=== PATIENT | male | born 1955 | race African-American/Black ===

== ENCOUNTER 2017-04-25 02:41 | Inpatient (IN) | payer OTHER ==
[~2017-04-25] VITALS: Ht 180.3 cm; Wt 84.4 kg
[2017-04-25 02:45] VITALS: Ht 180.3 cm; Wt 84.4 kg
[2017-04-25 03:59] LABS: BASOPHIL % 0.3 % (0-2)
[2017-04-25 04:08] LABS: RED CELL DISTRIBUTION WIDTH 16.6 % (11.5-14.5)
[2017-04-25 04:13] LABS: CALCIUM 8.6 mg/dL (8.5-10.1); CARBON DIOXIDE 27.1 mmol/L (21-32); CREATININE SERUM 1.6 mg/dL (0.7-1.3); POTASSIUM SERUM 5.3 mmol/L (3.5-5.1)
[2017-04-25 04:18] LABS: BILIRUBIN TOTAL 3.66 mg/dL (0.20-1.00)
[2017-04-25 04:21] LABS: ALBUMIN 2.7 g/dL (3.4-5.0); TOTAL PROTEIN, SERUM 8.6 g/dL (6.4-8.2)
[2017-04-25 05:16] LABS: PLATELET COUNT 44 x10^3mcL (130-400)
[2017-04-25] MEDS ORDERED: APAP500 MG (06:39)
[2017-04-25] MEDS ORDERED: LACTULOSE10 GM/152 (06:40)
[2017-04-25] MEDS ORDERED: NITROGLYCERIN0.4 MG (06:40)
[2017-04-25] MEDS ORDERED: VIBRAMYCIN50 MG/5 ML (06:40)
[2017-04-25] MEDS ORDERED: TAMSULOSIN HYD0.4 M1 (06:41)
[2017-04-25] MEDS ORDERED: CARVEDILOL3.125 M1 (06:41)
[2017-04-25] MEDS ORDERED: LIPI20 (06:41)
[2017-04-25] MEDS ORDERED: IPRATROPIUM BRO1 POW (06:41)
[2017-04-25] MEDS ORDERED: FUROSEMIDE5 GM (06:41)
[2017-04-25] MEDS ORDERED: FERROUS SULFAT325 M2 (06:42)
[2017-04-25] MEDS ORDERED: ALDACTONE25 MG (06:42)
[2017-04-25] MEDS ORDERED: MOMETASONE FUR500 ML (06:42)
[2017-04-25] MEDS ORDERED: METOLAZONE5 M1 (06:42)
[2017-04-25] MEDS ORDERED: XOPENEX HF0.045 MG/1 (06:43)
[2017-04-25] MEDS ORDERED: ASPIRIN81 MG (06:43)
[2017-04-25] MEDS ORDERED: ZESTRIL20 MG (06:43)
[2017-04-25 07:00] VITALS: BP 93/64
[2017-04-25 08:22] VITALS: BP 93/64
[2017-04-25 09:27] LABS: CHOLESTEROL/HDL RATIO 1.4
[2017-04-25 09:49] VITALS: BP 93/57
[2017-04-25 11:10] LABS: microscopic required? NO
[2017-04-25 11:46] LABS: urine erythrocyte NEGATIVE (NEGATIVE)
[2017-04-25 11:48] LABS: AMPHETAMINE QUAL UR NONE DETECTED (NEG <=1000)
[2017-04-25 13:06] VITALS: BP 105/75
[2017-04-25 17:39] VITALS: BP 108/74
[2017-04-25 20:53] VITALS: BP 99/64
[2017-04-26 05:42] VITALS: BP 93/59
[2017-04-26 08:53] LABS: CALCIUM 8.5 mg/dL (8.5-10.1); CARBON DIOXIDE 27.2 mmol/L (21-32); CREATININE SERUM 1.6 mg/dL (0.7-1.3); POTASSIUM SERUM 4.3 mmol/L (3.5-5.1)
[2017-04-26 09:00] VITALS: BP 97/66
[2017-04-26 09:28] LABS: BASOPHIL % 0 % (0-2); RED CELL DISTRIBUTION WIDTH 16.3 % (11.5-14.5)
[2017-04-26 10:41] LABS: PLATELET COUNT 37 x10^3mcL (130-400)
[2017-04-26 12:24] VITALS: BP 94/68
[2017-04-26 16:33] VITALS: BP 99/77
[2017-04-26 22:17] VITALS: BP 119/78
[2017-04-27 06:31] VITALS: BP 122/60
[2017-04-27 07:12] LABS: BASOPHIL % 0 % (0-2)
[2017-04-27 07:48] LABS: CARBON DIOXIDE 29.4 mmol/L (21-32); CREATININE SERUM 1.6 mg/dL (0.7-1.3); POTASSIUM SERUM 3.3 mmol/L (3.5-5.1)
[2017-04-27 08:33] LABS: PLATELET COUNT 30 x10^3mcL (130-400)
[2017-04-27 10:54] VITALS: BP 104/62
[2017-04-27 14:11] VITALS: BP 101/56
[2017-04-27 15:27] VITALS: BP 101/56
[2017-04-27 18:43] VITALS: BP 102/73
== END 2017-04-27 19:47 | disposition other institution (70) | DRG 189 ==
LOC: ED 02:41 → DU 05:19
PROVIDERS: Emergency Medicine; Internal Medicine
PROC: 3E0234Z Introduction of Serum, Toxoid and Vaccine into Muscle, Percutaneous Approach (ICD-10-PCS; principal; 2017-04-25)
DX: J96.21 Acute and chronic respiratory failure with hypoxia (principal); J18.9 Pneumonia, unspecified organism; J44.1 Chronic obstructive pulmonary disease with (acute) exacerbation; J44.0 Chronic obstructive pulmonary disease with (acute) lower respiratory infection; J45.901 Unspecified asthma with (acute) exacerbation; I24.9 Acute ischemic heart disease, unspecified; Z23 Encounter for immunization; K74.60 Unspecified cirrhosis of liver; I25.10 Atherosclerotic heart disease of native coronary artery without angina pectoris; I25.5 Ischemic cardiomyopathy; Z95.0 Presence of cardiac pacemaker; D69.6 Thrombocytopenia, unspecified; J20.9 Acute bronchitis, unspecified; I50.9 Heart failure, unspecified
CPT/HCPCS: 83880; 90732; J1940; J1956; J2543; J2920; J2930; J7050; J7620; Q0092

== ENCOUNTER 2017-11-21 18:55 | Inpatient (IN) | payer OTHER ==
[~2017-11-21] VITALS: Ht 182.9 cm; Wt 81.6 kg
[~2017-11-21 18:55] MED LIST: ALDACTONE25 MG; APAP500 MG; ASPIRIN81 MG; CARVEDILOL3.125 M1; FERROUS SULFAT325 M2; FUROSEMIDE5 GM; IPRATROPIUM BRO1 POW; LACTULOSE10 GM/152; LIPI20; METOLAZONE5 M1; MOMETASONE FUR500 ML; NITROGLYCERIN0.4 MG; TAMSULOSIN HYD0.4 M1; VIBRAMYCIN50 MG/5 ML; XOPENEX HF0.045 MG/1; ZESTRIL20 MG
[2017-11-21 18:58] VITALS: Ht 182.9 cm; Wt 81.6 kg
[2017-11-21 19:43] LABS: FREE THYROXINE INDEX 2.2 ug/dL (1.4-4.5); T4(THYROXINE) 6.1 ug/dL (4.7-13.3)
[2017-11-21 19:45] LABS: PLATELET COUNT 60 x10^3mcL (130-400); RED CELL DISTRIBUTION WIDTH 15.6 % (11.5-14.5)
[2017-11-21 19:49] LABS: CALCIUM 8.1 mg/dL (8.5-10.1); CARBON DIOXIDE 30.7 mmol/L (21-32); CHLORIDE SERUM 106 mmol/L (98-107); CREATININE SERUM 1.1 mg/dL (0.7-1.3); GFR1 > 60 mL/min; GLUCOSE SERUM 118 mg/dL (74-106); POTASSIUM SERUM 3.5 mmol/L (3.5-5.1); SODIUM SERUM 140 mmol/L (136-145)
[2017-11-21 19:53] LABS: BAND NEUTROPHIL 0 % (0-10); BASOPHIL 0 % (0-2); MONOCYTE 14 % (0-7); PLATELET MORPHOLOGY PLATELETS DECREASED; SEGMENTED NEUTROPHILS 51 % (37-75); rbc morphology (normal/abnorm) ABNORMAL (NORMAL)
[2017-11-21 19:55] LABS: ALKALINE PHOSPHATASE 71 U/L (46-116); ALT/SGPT 21 U/L (16-63); AST/SGOT 40 U/L (15-37); BILIRUBIN TOTAL 1.45 mg/dL (0.20-1.00); HDL CHOLESTEROL 60 mg/dL (40-60); LIPASE 154 IU/L (73-393); TRIGLYCERIDES 40 mg/dL (<150)
[2017-11-21 19:56] LABS: ALBUMIN 2.3 g/dL (3.4-5.0); CHOLESTEROL 106 mg/dL (<200); CHOLESTEROL/HDL RATIO 1.8
[2017-11-21 20:07] LABS: T3 TOTAL 0.89 ng/mL
[2017-11-21 20:25] LABS: FREE T4 0.96 ng/dL (0.76-1.46)
[2017-11-21 21:38] VITALS: BP 120/72
[2017-11-21 22:27] VITALS: BP 120/72
[2017-11-21 22:29] LABS: microscopic required? NO
[2017-11-21 22:41] LABS: urine erythrocyte NEGATIVE (NEGATIVE)
[2017-11-22 05:53] VITALS: BP 94/55
[2017-11-22 06:13] LABS: BASOPHIL % 0.2 % (0-2)
[2017-11-22 06:20] LABS: CALCIUM 8.1 mg/dL (8.5-10.1); CARBON DIOXIDE 24.9 mmol/L (21-32); CHLORIDE SERUM 104 mmol/L (98-107); CREATININE SERUM 1.1 mg/dL (0.7-1.3); GFR1 > 60 mL/min; GLUCOSE SERUM 138 mg/dL (74-106); POTASSIUM SERUM 3.8 mmol/L (3.5-5.1); SODIUM SERUM 137 mmol/L (136-145)
[2017-11-22 07:10] LABS: PLATELET COUNT 52 x10^3mcL (130-400); RED CELL DISTRIBUTION WIDTH 15.2 % (11.5-14.5)
[2017-11-22 08:00] VITALS: BP 94/64
[2017-11-22 08:11] VITALS: BP 94/64
[2017-11-22] MEDS ORDERED: EPCLUSA 400 MG1 EACH PO (14:03)
[2017-11-22 16:14] VITALS: BP 93/56
[2017-11-22 21:19] VITALS: BP 92/59
[2017-11-23 05:59] VITALS: BP 93/65
[2017-11-23 06:46] LABS: CALCIUM 8.2 mg/dL (8.5-10.1); CREATININE SERUM 1.3 mg/dL (0.7-1.3); POTASSIUM SERUM 4.5 mmol/L (3.5-5.1)
[2017-11-23 07:01] LABS: BASOPHIL % 0 % (0-2); RED CELL DISTRIBUTION WIDTH 15.4 % (11.5-14.5)
[2017-11-23 07:02] LABS: PLATELET COUNT 44 x10^3mcL (130-400)
[2017-11-23 17:47] VITALS: BP 108/66
[2017-11-23 20:58] VITALS: BP 104/65
[2017-11-24 05:34] VITALS: BP 107/77
[2017-11-24 06:32] LABS: CALCIUM 8.3 mg/dL (8.5-10.1); CARBON DIOXIDE 28.2 mmol/L (21-32); CREATININE SERUM 1.3 mg/dL (0.7-1.3); POTASSIUM SERUM 4.5 mmol/L (3.5-5.1)
[2017-11-24 06:49] LABS: BASOPHIL % 0 % (0-2)
[2017-11-24 07:59] LABS: PLATELET COUNT 44 x10^3mcL (130-400)
[2017-11-24 08:11] VITALS: BP 102/39
[2017-11-24 10:14] VITALS: BP 102/39
[2017-11-24 12:42] VITALS: BP 102/39
[2017-11-24 13:46] VITALS: BP 105/76
== END 2017-11-24 15:20 | disposition other institution (70) | DRG 193 ==
LOC: ED 18:55 → DU 20:08
PROVIDERS: Internal Medicine; Specialist
DX: J18.9 Pneumonia, unspecified organism (principal); J96.00 Acute respiratory failure, unspecified whether with hypoxia or hypercapnia; G93.41 Metabolic encephalopathy; J44.1 Chronic obstructive pulmonary disease with (acute) exacerbation; D61.818 Other pancytopenia; J45.901 Unspecified asthma with (acute) exacerbation; I42.9 Cardiomyopathy, unspecified; I25.10 Atherosclerotic heart disease of native coronary artery without angina pectoris; K70.31 Alcoholic cirrhosis of liver with ascites; K72.90 Hepatic failure, unspecified without coma; I11.0 Hypertensive heart disease with heart failure; I50.9 Heart failure, unspecified; B18.2 Chronic viral hepatitis C; Z68.22 Body mass index [BMI] 22.0-22.9, adult; G47.33 Obstructive sleep apnea (adult) (pediatric); Z95.810 Presence of automatic (implantable) cardiac defibrillator; R73.9 Hyperglycemia, unspecified; D64.9 Anemia, unspecified
CPT/HCPCS: 82962; 83880; 84439; C9113; J1580; J1940; J2920; J2930; J7050; J7620; J7626; Q0092